=== PATIENT | female | born 1960 ===

== ENCOUNTER 2024-08-29 11:19 | Inpatient (IN) | payer OTHER ==
[~2024-08-29] VITALS: Ht 167.6 cm; Wt 121.2 kg
[2024-08-29] MEDS ORDERED: VALSARTAN320 MG PO (11:42)
[2024-08-29] MEDS ORDERED: LIPITOR80 MG PO (11:42)
[2024-08-29] MEDS ORDERED: SERT50 PO (11:42)
[2024-08-29] MEDS ORDERED: EPINEPHRIN0.3 MG/0.1 IM (11:42)
[2024-08-29] MEDS ORDERED: Dose Adjust by Pharmacy XX STA (12:41)
[2024-08-29] MEDS ORDERED: Heparin Sodium 5000 Units/ML 1ML MDV IV ONE (12:45)
[2024-08-29 12:57] LABS: International Normalized Ratio 1.02; Prothrombin Time Results 10.9 Sec (9.7-11.5)
[2024-08-29] MEDS ORDERED: Heparin Sodium,Porcine/0.5 NS 500 ML IV SCH (13:00)
[2024-08-29] MEDS ORDERED: FLU VACC TS2024-25(6MOS UP)/PF 45 MCG/0.5 ML SYRINGE IM ONE (15:10)
[2024-08-29 15:25] LABS: Cholesterol 138 mg/dL (50-200); HDL Cholesterol 46 mg/dL (>39); LDL/HDL RATIO 1.7; Low Density Lipoprotein Chol 77 mg/dL (0-110); Triglycerides 74 mg/dL (30-160); Very Low Density Lipoprot Chol 14 mg/dL (6-32)
[2024-08-29] MEDS ORDERED: Aspirin 81 MG Chew PO SCH (16:00)
[2024-08-29] MEDS ORDERED: EpiNEPhrine 1 MG/1 ML 1ML Vial IM PRN (16:20)
[2024-08-29 18:44] VITALS: BP 146/87
[2024-08-29] MEDS ORDERED: CYCL10 PO (18:52)
[2024-08-29] MEDS ORDERED: ACYC200 PO (18:52)
--- NOTE | 2024-08-29 18:54 | NUR ---
ARRIVAL TO PCU 16 PT A&OX4, CALLS AND COMMUNICATES NEEDS APPROPRIATELY. BP STABLE, SINUS 90's, DENIES CP/PRESSURE, REPORTS MILD L SHOULDER DISCOMFORT. SpO2> 92% RA, DENIES SOB. SBA IN ROOM. CONTINENT OF URINE, NO BM SINCE ARRIVAL. ORIENTED TO CALL LIGHT/UNIT. HEPARIN gtt INFUSING AT 15units/kg/hr. NO OTHER EVENTS, WILL REPORT TO ONCOMING RN.
[2024-08-29 20:10] VITALS: BP 143/94
--- NOTE | 2024-08-29 20:54 | NUR ---
PHYSICIAN COMMUNICATION CONTACTED CUPOLA MECHANIC RESIDENT TO NOTIFY HIM THAT THE PATIENT WAS REPORTING INCREASED CHEST PRESSURE, RATING IT 7/10 AND ABDOMINAL PAIN. PATIENT REPORTED RECEIVING NITRO EARLIER AND IT WAS NOT EFFECTIVE FOR PAIN. NOTIFIED PROVIDER THAT THE PATIENT DOES NOT HAVE ANYTHING ORDERED TO HELP WITH THE PAIN. RESIDENT TO INPUT ORDERS.
[2024-08-29] MEDS ORDERED: Morphine Sulfate 4 MG/1 ML Injection IV PRN (21:00)
[2024-08-29] MEDS ORDERED: Nitroglycerin 0.4 MG SUBL SL PRN (21:00)
[2024-08-30] VITALS (29 sets, daily range): BP systolic 93–157; BP diastolic 71–115
[2024-08-30 03:17] LABS: BASOPHILS ABSOLUTE AUTO 0.04 K/mm3 (0.00-0.23); BASOPHILS PERCENT AUTO 0 % (0-2); EOSINOPHILS ABSOLUTE AUTO 0.21 K/mm3 (0.00-0.68); EOSINOPHILS PERCENT AUTO 2 % (0-6); Hematocrit 36.4 % (33.0-51.0); Hemoglobin 11.5 g/dL (11.5-16.0); IMMATURE GRAN ABSOLUTE AUTO 0.02 K/mm3 (0.00-0.10); IMMATURE GRAN PERCENT AUTO 0 % (0-1); LYMPHOCYTES ABSOLUTE AUTO 2.62 K/mm3 (0.84-5.20); LYMPHOCYTES PERCENT AUTO 27 % (21-46); MONOCYTES ABSOLUTE AUTO 1.06 K/mm3 (0.16-1.47); MONOCYTES PERCENT AUTO 11 % (4-13); Mean Corpuscular HGB 29.6 pg (26.0-34.0); Mean Corpuscular HGB Conc 31.6 g/dL (31.5-36.5); Mean Corpuscular Volume 94 fL (80-100); Mean Platelet Volume 11.5 fL (9.1-12.4); NEUTROPHILS ABSOLUTE AUTO 5.68 K/mm3 (1.96-9.15); NEUTROPHILS PERCENT AUTO 59 % (41-73); Platelet Count 278 K/mm3 (150-400); RDW Coefficient Variation 13.2 % (11.7-14.2); RDW Standard Deviation 45.5 fL (35.1-46.3); Red Blood Cell Count 3.89 M/mm3 (3.80-5.20); White Blood Cell Count 9.63 K/mm3 (4.00-11.30)
[2024-08-30 03:35] LABS: Albumin, Blood 3.2 g/dL (3.4-5.0); Albumin/Globulin Ratio 0.8 (0.8-1.8); Bilirubin, Total 0.4 mg/dL (0.1-1.0); Bun/Creatinine Ratio 14.6 (12.0-20.0); Calcium, Blood 8.8 mg/dL (8.5-10.1); Creatinine, Blood 1.03 mg/dL (0.40-1.00); Potassium, Blood 4.4 mmol/L (3.5-5.5); Total Protein, Blood 7.2 g/dL (6.4-8.2)
[2024-08-30] MEDS ORDERED: Dose Adjust by Pharmacy XX STA (03:56)
--- NOTE | 2024-08-30 06:47 | NUR ---
SHIFT SUMMARY PATIENT ALERT AND ORIENTED X4. PATIENT CONTINUES TO EXPERIENCE CHEST PAIN AT REST AND IS REPORTING ANXIETY. MEDICATED PER EMAR FOR THE CHEST PAIN. ON ROOM AIR WITH SPO2 >90%. VITAL SIGNS STABLE. WILL CONTINUE TO MONITOR. CALL LIGHT WITHIN REACH.
[2024-08-30] MEDS ORDERED: FentaNYL Citrate 50 MCG/ML 2 ML Injection IV PRN (08:15)
[2024-08-30] MEDS ORDERED: Atorvastatin 40 MG Tab PO SCH (09:00)
[2024-08-30] MEDS ORDERED: Losartan Potassium 50 MG Tab PO SCH (09:00)
[2024-08-30] MEDS ORDERED: Sertraline HCl 50 MG Tab PO SCH (09:00)
[2024-08-30] MEDS ORDERED: Aspirin 81 MG Chew PO SCH (09:00)
[2024-08-30] MEDS ORDERED: FentaNYL Citrate 50 MCG/ML 2 ML Injection ONE ×6 (10:07→17:26)
[2024-08-30] MEDS ORDERED: Midazolam HCl 1MG / ML 2ML Vial ONE ×6 (10:07→17:26)
[2024-08-30] MEDS ORDERED: Ticagrelor 90 MG TABLET ONE (10:46)
--- NOTE | 2024-08-30 11:24 | NUR ---
MORNING SUMMARY THE PT IS A&OX4, SBA FOR LINE MANAGMENT ON TX, AND HAS BEEN ON RA THIS MORNING. THE PT HAS BEEN SR ON TELE AND BP IS STABLE. THE PT HAS BEEN HAVING ONGOING CHEST PAIN. DR. DIAZ, THE ORTHOTIST CONSULTED ON 08/29 WAS CALLED AND HE REFERED THIS RN TO DR. SOTO, THE ORTHOTIST ONCALL TODAY. HE DID ORDER FENTANYL TO HELP WITH ANGINA. DR. SOTO CAME TO SEE THE PT AND WAS CONSENTED FOR ANGIOGRAM.REPEAT EKG PER DR. ALEJO. PT WAS TAKEN FOR ANGIO AROUND 0945. SHE HAS BEEN ON RA W/ SP02 >93%, AND DENIES SOB. ECHO COMPLETED THIS MORNING. SEE NOTES FOR UPDATES.
--- NOTE | 2024-08-30 12:32 | NUR ---
PT BACK TO ROOM POST ANGIOGRAM. DR. LIZARRAGA CAME AND TALKED WITH THE PT. THE PT HAS RIGHT RADIAL ACCESS WITH A TR BAND INTACT W/ 11CC'S IN THE BAND. ACT >200, WAITING 2HRS TO DEFLATE THE BALLOON PER PROTOCOL. THE PT'S VITAL SIGNS ARE STABLE, BUT SHE IS HAVING SOB AND CHEST PAIN. DR. FISHER WANTED US TO TRY NITRO. NITRO DID NOT HAVE ANY BENEFIT TO CHEST PAIN AND CAUSED HEADACHE AND SOME NAUSEA. 25MCG OF FENTANYL GIVEN WITH POSITIVE EFFECTS TO ANGINA. PT PLACED ON 1L NC FOR COMFORT WITH SOB. THE PT IS VERY EMOTIONAL AND ANXIOUS. THIS RN CALLED DR. CALVERT FOR ANXIETY MEDICATIONS.
[2024-08-30] MEDS ORDERED: HyDROXyzine HCl 25 MG Tab PO ONE (13:00)
[2024-08-30] MEDS ORDERED: HyDROXyzine HCl 25 MG Tab PO PRN (13:00)
[2024-08-30] MEDS ORDERED: NS 1,000 ML IV ONE ×4 (13:24→16:55)
[2024-08-30] MEDS ORDERED: Verapamil HCL 2.5 MG/ML 2ML Injection ONE ×2 (13:24→16:45)
[2024-08-30] MEDS ORDERED: Nitroglycerin 2 MG/20 ML BTL ONE ×2 (13:24→16:45)
[2024-08-30] MEDS ORDERED: NS 250 ML IV ONE ×2 (13:24→16:45)
[2024-08-30] MEDS ORDERED: Heparin Sodium 1000 Units/ML 10ML MDV ONE ×4 (13:24→16:55)
[2024-08-30] MEDS ORDERED: Aspirin 325 MG Tab PO SCH ×2 (14:00→21:00)
[2024-08-30] MEDS ORDERED: Pantoprazole Sodium 40 MG Injection IV SCH (14:00)
[2024-08-30] MEDS ORDERED: Colchicine 0.6 MG TAB PO SCH (14:00)
[2024-08-30] MEDS ORDERED: DiphenhydrAMINE HCL 25 MG Cap PO ONE (14:00)
--- NOTE | 2024-08-30 14:00 | NUR ---
PT CONTINUES TO HAVE 10/10 CRUSHING MID STERNAL PAIN. WHEN SHE IS LAYING FLAT SHE STATES SHE FEELS LIKE SOMEONE HAS THEIR HAND AROUND HER THROAT AND IT IS CAUSING PRESSURE. DESPITE USING PRN'S PAIN UNCONTROLLED. DR. FISHER CALLED AND AN EKG WAS TAKEN. AT BEDSIDE HE COMPARED EKG'S AND ORDERED PROTONIX, COLCHINE, ASPIRIN, AND BENADRYL. SEE EMAR FOR DETAILS.
--- NOTE | 2024-08-30 16:40 | NUR ---
CONTINUED ANGINA/CHEST PRESSURE THE PT CONTINUES TO HAVE 10/10 CRUSHING, SHARP CHEST PAIN THAT IS NOW RADIATING TO HER SHOULDERS AND BACK OF THE NECK. DR. FISHER WAS CALLED AND UPDATED. HE ORDERED A REPEAT EKG AND WANTED TO BE NOTIFIED WHEN IT WAS COMPLETE. AFTER SEEING CRITICAL RESULTS ON THE EKG HE WAS CALLED AND CAME TO BEDSIDE. AFTER EVALUATING THE PT HE STATED HE IS GOING TO TAKE HER BACK TO THE BED LABORER. HER RIGHT RADIAL SITE IS FULLY RECOVERED AT 1600. SITE WITHOUT ANY BLEEDING OR HEMATOMA. CHG TO CLEAN AND TEGADERM AND ARMBOARD INTACT. WAITING FOR BED LABORER AT THIS TIME. DR. CALVERT AND HORTICULTURE/FLORICULTURE TEACHER UPDATED ON THE PT'S PLAN OF CARE. SEE NOTES FOR UPDATES .
--- NOTE | 2024-08-30 18:19 | NUR ---
PT BACK IN THE ROOM AFTER HER SECOND ANGIOGRAM. CRP SENT TO LAB. GI COCTAIL ORDERED. DR. FISHER AT BEDSIDE. CTA CHEST/ABD/PELVIS ORDERED STAT. RIGHT RADIAL ACCESS. TR BAND SITE WITH 12 CC'S IN THE BAG. PT'S CAP REFILL WAS >3 SEC. 1CC OF AIR REMOVED. SITE W/O BLEEDING OR HEMATOMA. PT VS STABLE. PT CONTINUES TO HAVE 10/10 CHEST CONSTANT CRUSHING CHEST PAIN. DR. SPARROW OKAY'D TO CONTINUE GIVING MORPHINE AND FENTANYL PER EMAR.
[2024-08-30] MEDS ORDERED: Mag Hydrox/Al Hydrox/Simeth 18 ML,Lidocaine 2% Viscous Soln 9 ML,Atropine/Scopalam/Hyos... PO ONE (18:20)
[2024-08-30] MEDS ORDERED: LORazepam 2 MG/ML 1ML Injection ONE (19:01)
[2024-08-30] MEDS ORDERED: LORazepam 2 MG/ML 1ML Injection IV STA (19:05)
--- NOTE | 2024-08-30 19:41 | NUR ---
PT TAKEN DOWN FOR STAT CTA. HER CHEST PAIN AND SOB WAS WORSE WHEN LAYING ON THE TABLE. D/T DISCOMFORTS AND CLAUSTERPHOBIA THE PT WAS MEDICATED WITH 1MG ATIVAN. CHARGE NURSE SUKUMAR STAY'D WITH THE PT. THE PT IS NOW BACK IN THE ROOM POST CTA. RESULTS PENDING. CARE HANDED OFF TO SHANKAR QUIROZ. NO FURTHER NOTES FROM THIS RN.
--- NOTE | 2024-08-30 19:52 | NUR ---
PATIENT RETURNED FROM CT REPORTING 04/06 MIDSTERNAL CRUSHING CHEST PAIN. PATIENT IS SHORT OF BREATH AN ANXIOUS. PATINENT HELPED INTO HER BED, VITALS TAKEN AND STABLE. PATIENT MEDICATED PER EMAR FOR CHEST PAIN BUT WAS FOUND SITTING UP ON THE SIDE OF THE BED, PATIENT STATED SHE WAS TRYING TO GET TO BED AND REMOVING MONITORING EQUIPMENT FROM HERSELF. PATIENT DISORIENTED TO DATE, ORIENTED TO ALL OTHER QUESTIONS BUT WAS UNAWARE THAT SHE WAS BACK IN HER HOSPITAL ROOM. PATIENT SPEAKING IN SENTENCES THAT DON'T MAKE SENSE. PATIENT ASSISTED BACK INTO BED. BED ALARM TURNED ON. CALL LIGHT WITHIN REACH. WILL CONTINUE TO MONITOR.
[2024-08-30] MEDS ORDERED: Clopidogrel Bisulfate 300 MG Cap PO ONE (21:00)
[2024-08-30] MEDS ORDERED: Pantoprazole Sodium 40 MG Tab PO SCH (22:00)
[2024-08-31] VITALS (20 sets, daily range): BP systolic 98–130; BP diastolic 62–94
[2024-08-31 06:16] LABS: BASOPHILS ABSOLUTE AUTO 0.03 K/mm3 (0.00-0.23); BASOPHILS PERCENT AUTO 0 % (0-2); EOSINOPHILS PERCENT AUTO 0 % (0-6); Hematocrit 34.8 % (33.0-51.0); Hemoglobin 10.8 g/dL (11.5-16.0); IMMATURE GRAN ABSOLUTE AUTO 0.08 K/mm3 (0.00-0.10); IMMATURE GRAN PERCENT AUTO 0 % (0-1); LYMPHOCYTES ABSOLUTE AUTO 0.77 K/mm3 (0.84-5.20); LYMPHOCYTES PERCENT AUTO 4 % (21-46); MONOCYTES ABSOLUTE AUTO 2.44 K/mm3 (0.16-1.47); MONOCYTES PERCENT AUTO 13 % (4-13); Mean Corpuscular Volume 94 fL (80-100); Mean Platelet Volume 11.7 fL (9.1-12.4); NEUTROPHILS ABSOLUTE AUTO 15.29 K/mm3 (1.96-9.15); NEUTROPHILS PERCENT AUTO 82 % (41-73); Platelet Count 276 K/mm3 (150-400); RDW Coefficient Variation 13.5 % (11.7-14.2); RDW Standard Deviation 46.3 fL (35.1-46.3); Red Blood Cell Count 3.72 M/mm3 (3.80-5.20); White Blood Cell Count 18.61 K/mm3 (4.00-11.30)
--- NOTE | 2024-08-31 06:23 | NUR ---
SHIFT SUMMARY PATIENT PATIENT CONTINUES TO HAVE SEVERE CHEST PAIN AND ANXIETY, MEDICATED PER EMAR. PATIENT HAD TO BE REASSURED AGAIN THAT SHE IS IN THE HOSPITAL, MOST RECENTLY SHE THOUGHT SHE WAS IN A BANK OR BASEMENT SOMEWHERE. PATIENT PLACED ON O2 VIA NC FOR COMFORT DUE TO FEELING SHORT OF BREATH, ALTHOUGH >90% ON ROOM AIR. VITAL SIGNS STABLE. WILL CONTINUE TO MONITOR. CALL LIGHT WITHIN REACH.
[2024-08-31 06:43] LABS: Albumin, Blood 3.2 g/dL (3.4-5.0); Albumin/Globulin Ratio 0.7 (0.8-1.8); Bilirubin, Total 0.4 mg/dL (0.1-1.0); Bun/Creatinine Ratio 13.9 (12.0-20.0); Creatinine, Blood 1.15 mg/dL (0.40-1.00); Globulin, Blood 4.4 g/dL (2.2-4.0); Potassium, Blood 4.7 mmol/L (3.5-5.5); Total Protein, Blood 7.6 g/dL (6.4-8.2)
[2024-08-31] MEDS ORDERED: Clopidogrel Bisulfate 300 MG Cap PO ONE (07:00)
[2024-08-31] MEDS ORDERED: LORazepam 1 MG Tab PO PRN (07:30)
[2024-08-31] MEDS ORDERED: Empagliflozin 10 MG TAB PO SCH (09:00)
[2024-08-31] MEDS ORDERED: prasugrel HCL 10 MG TABLET PO ONE (09:00)
[2024-08-31] MEDS ORDERED: Colchicine 0.6 MG TAB PO SCH (09:00)
[2024-08-31] MEDS ORDERED: Losartan Potassium 50 MG Tab PO SCH (09:00)
[2024-08-31] MEDS ORDERED: Lactated Ringer's 1,000 ML IV SCH (10:00)
[2024-08-31] MEDS ORDERED: Enoxaparin 40 MG/0.4 ML SYR SC SCH (13:30)
--- NOTE | 2024-08-31 17:00 | NUR ---
SHIFT SUMMARY PT A/OX4 AND COOPERATIVE OF CARE. PT ABLE T EXPRESS NEEDS AND CALLED APPROPIATE. PT ANXIOUS AT TIMES DURING SHIFT, TREATED PER EMAR. PT ENDORSED CHEST PAIN RELATED TO COUGHING AND DEEP BREATHS, TREATED PER EMAR. OTHER VSS THROUGHOUT SHIFT WITH O2 SATS IN THE 90'S ON RA-1L NC. PT ABLE TO AMBULATE TO BATHROOM FOR OILETING AND SHOWER, TOELRATED FAIR. PT ABLE TO REPOSITION SELF IN BED.
[2024-08-31] MEDS ORDERED: LORazepam 2 MG/ML 1ML Injection ONE (18:46)
[2024-08-31] MEDS ORDERED: LORazepam 2 MG/ML 1ML Injection IV ONE (18:50)
[2024-08-31] MEDS ORDERED: Ondansetron HCl 2 MG / ML 2ML Vial ONE (19:24)
[2024-08-31] MEDS ORDERED: Ondansetron HCl 2 MG / ML 2ML Vial IV PRN (19:35)
--- NOTE | 2024-08-31 19:38 | NUR ---
UPDATE [employer] NOTIFIED THIS RN THAT PT HR HAS BEEN REACHING 160'S, THIS RN TO ASSESS. PT TACHYPNIEC AND CLENCHING CHEST. PT REPORTED 10/10 CHEST PAIN. PT RECIEVED PO ATIVAN AND IV FENTYNAL PER ORDERS. PT CONTINUED TO RUN TACHY AND HAVE CHEST PAIN. THIS INSTRUCTED HOSPITAL ADMITTING CLERK TO GET EKG AND THIS RN CONTACTED MD FOR UPDATE. VITALS TAKEN AND STABLE OTHER THAN HR AND RR. MD NOTIFIED. EKG OBTAINED AND ST CHANGES NOTICED. THIS RN AGAIN CONTACTED MD OBI NOT AT HOSPITAL AT THIS TIME AND MD CONTACTED NIGHT TIME MD. TO BEDSIDE TO REVIEW EKG AND ASSESS PT. PT REPORTED CHEST RADIATING TO JAW, NECK BILAT ARMS AND BACK. PT REPORTED THAT PAIN IS "WORSE THAN WHEN I CAME IN." NIGHT MD INSTRUCTED THIS RN TO PUSH RECENT EKG TO PHOTORADIO OPERATOR, IMAGE PUSHED TO DR LIZARRAGA. DR LIZARRAGA TO BEDSIDE. REPORT GIVEN TO MD AND ONCOMING RN.
[2024-08-31] MEDS ORDERED: Heparin Sodium,Porcine/0.5 NS 500 ML IV SCH (20:10)
[2024-08-31] MEDS ORDERED: Heparin Sodium 5000 Units/ML 1ML MDV IV ONE (20:10)
[2024-08-31 20:36] LABS: Anti-Xa UFH, PHA Monitoring <0.10 IU/mL; International Normalized Ratio 1.12; Prothrombin Time Results 11.9 Sec (9.7-11.5)
[2024-08-31 20:56] LABS: Free Thyroxine 0.97 ng/dL (0.70-1.60); Magnesium, Blood 2.4 mg/dL (1.6-2.4)
[2024-08-31 21:03] LABS: Potassium, Blood 4.3 mmol/L (3.5-5.5); Thyroid Stimulating Hormone 3.15 uIU/mL (0.360-4.800)
[2024-09-01] VITALS (10 sets, daily range): BP systolic 10–143; BP diastolic 75–90
[2024-09-01 03:38] LABS: Hematocrit 32.8 % (33.0-51.0); Hemoglobin 10.4 g/dL (11.5-16.0); Mean Corpuscular HGB 29.9 pg (26.0-34.0); Mean Corpuscular HGB Conc 31.7 g/dL (31.5-36.5); Mean Corpuscular Volume 94 fL (80-100); Platelet Count 285 K/mm3 (150-400); RDW Coefficient Variation 13.8 % (11.7-14.2); RDW Standard Deviation 47.3 fL (35.1-46.3); Red Blood Cell Count 3.48 M/mm3 (3.80-5.20); White Blood Cell Count 25.46 K/mm3 (4.00-11.30)
[2024-09-01 03:57] LABS: BAND PERCENT MAN 8 % (0-8); BASOPHILS PERCENT MAN 0 % (0-2); EOSINOPHILS PERCENT MAN 0 % (0-6); LYMPHOCYTES ABSOLUTE MAN 1.27 K/mm3 (0.84-5.20); LYMPHOCYTES PERCENT MAN 5 % (21-46); MONOCYTES ABSOLUTE MAN 1.27 K/mm3 (0.16-1.47); MONOCYTES PERCENT MAN 5 % (4-13); NEUTROPHILS ABSOLUTE MAN 22.91 K/mm3 (1.96-9.15); SEG NEUTROPHILS PERCENT MAN 82 % (41-73); TOTAL CELLS COUNTED 100
[2024-09-01 04:06] LABS: Alanine Aminotransfer (ALT/SGP 22 U/L (12-78); Albumin, Blood 2.9 g/dL (3.4-5.0); Albumin/Globulin Ratio 0.6 (0.8-1.8); Alk Phos 122 U/L (50-136); Anion Gap 12 mmol/L (3-11); Aspartate Aminotrans (AST/SGOT 52 U/L (12-37); Bilirubin, Total 0.5 mg/dL (0.1-1.0); Blood Urea Nitrogen 25 mg/dL (8-24); Bun/Creatinine Ratio 14.2 (12.0-20.0); CO2, Blood 19 mmol/L (21-32); Calcium, Blood 8.3 mg/dL (8.5-10.1); Chloride, Blood 106 mmol/L (98-108); Creatinine, Blood 1.76 mg/dL (0.40-1.00); Globulin, Blood 4.5 g/dL (2.2-4.0); Glomerular Filtration Rate 32 (60-); Glucose, Blood 107 mg/dL (70-99); Potassium, Blood 4.8 mmol/L (3.5-5.5); Sodium, Blood 132 mmol/L (136-145); Total Protein, Blood 7.4 g/dL (6.4-8.2)
[2024-09-01 04:08] LABS: C-Reactive Protein, High Sens. >190.000 mg/dL (0.000-3.000)
[2024-09-01] MEDS ORDERED: Dose Adjust by Pharmacy XX STA ×2 (04:19→09:27)
--- NOTE | 2024-09-01 06:19 | NUR ---
SHIFT SUMMARY WHILE ZULMA VAUGHAN AND DR LIZARRAGA WERE AT BEDSIDE THE PATIENT WAS COMPLAINING OF 10/10 RADIATING CHEST PAIN AND NAUSEA. PATIENT MEDICATED PER EMAR. PROVIDERS ORDERED LABS AND A CHEST X RAY. PATIENT STARTED ON AN AMIODARONE AND HEPARIN DRIP. A CARDIZEM DRIP WAS ALSO ORDERED BUT DR LIZARRAGA SAID TO NOT START IT AND TO PLACE DEFIB PADS ON THE PATIENT AND ZOLL AT BEDSIDE. WHEN THE LABS RESULTED DR LIZARRAGA WAS NOTIFIED OF THEM AND THE FACT THAT HER HEART RATE WAS IN THE 120'S. A SECOND BOLUS OF AMIODARONE WAS ORDERED. ONCE THE PATIENT'S HEART RATE DROPPED DOWN TO THE 70'S AN EKG WAS OBTAINED PER DR LIZARRAGA ALONG WITH ONE AT 0500. BLOOD PRESSURE STABLE, ON ROOM AIR-1 LITER O2 VIA NC WITH SPO2 >90%. WILL CONTINUE TO MONITOR. CALL LIGHT WITHIN REACH.
[2024-09-01] MEDS ORDERED: Furosemide 20 MG Tab PO SCH (09:00)
[2024-09-01] MEDS ORDERED: prasugrel HCL 10 MG TABLET PO SCH (09:00)
[2024-09-01] MEDS ORDERED: Amiodarone HCl 200 MG Tab PO SCH (09:00)
[2024-09-01] MEDS ORDERED: Empagliflozin 10 MG TAB PO SCH (09:00)
[2024-09-01] MEDS ORDERED: Furosemide 10 MG/ML 4ML Vial IV SCH (09:00)
[2024-09-01] MEDS ORDERED: Losartan Potassium 50 MG Tab PO SCH (09:00)
[2024-09-01] MEDS ORDERED: Clopidogrel Bisulfate 75 MG Tab PO SCH (09:00)
[2024-09-01] MEDS ORDERED: PredniSONE 20 MG Tab PO SCH (09:30)
[2024-09-01] MEDS ORDERED: CefTRIAXone Sodium 1,000 MG in NS 100 ML IV SCH (12:01)
[2024-09-01] MEDS ORDERED: Acetaminophen 325 MG TABLET PO SCH (13:00)
--- NOTE | 2024-09-01 17:27 | NUR ---
SHIFT SUMMARY PT AOX4 AND COOPERATIVE OF CARE. PT ABLE TO EXPRESS NEEDS AND CALLS APPROPIATE. PT ENDORSED CHEST PAIN THAT IS CONSTANT, MD AWARE AND TREATING PER EMAR. VSS. HEPARIN STOPPED THIS SHIFT PER ORDER. AMIO SWITCHED TO PO PER ORDER. PT UP TO RECINER A COUPLE OF TIMES DRIN SHIFT, TOLERATED FAIR. GALLARDO PLACED PER ORDER. PT ABLE TO REST TOWARD END OF SHIFT, CHEST DISCOMFORT APEARED BETTER.
[2024-09-01] MEDS ORDERED: Lidocaine 4% 1 Patch TOP ONE (21:05)
[2024-09-01] MEDS ORDERED: Furosemide 10 MG/ML 4ML Vial IV STA (21:23)
[2024-09-02] VITALS (7 sets, daily range): BP systolic 95–134; BP diastolic 63–85
[2024-09-02] MEDS ORDERED: Benzonatate 100 MG Cap PO PRN (04:30)
[2024-09-02] MEDS ORDERED: Phenol/Sodium Phenolate Oral Spray 180 ML MM PRN (04:30)
[2024-09-02 04:58] LABS: BASOPHILS ABSOLUTE AUTO 0.03 K/mm3 (0.00-0.23); BASOPHILS PERCENT AUTO 0 % (0-2); EOSINOPHILS ABSOLUTE AUTO 0.17 K/mm3 (0.00-0.68); EOSINOPHILS PERCENT AUTO 1 % (0-6); Hemoglobin 10.8 g/dL (11.5-16.0); IMMATURE GRAN ABSOLUTE AUTO 0.06 K/mm3 (0.00-0.10); IMMATURE GRAN PERCENT AUTO 1 % (0-1); LYMPHOCYTES ABSOLUTE AUTO 1.28 K/mm3 (0.84-5.20); LYMPHOCYTES PERCENT AUTO 11 % (21-46); MONOCYTES ABSOLUTE AUTO 2.09 K/mm3 (0.16-1.47); MONOCYTES PERCENT AUTO 18 % (4-13); Mean Corpuscular HGB 29.2 pg (26.0-34.0); Mean Corpuscular HGB Conc 31.8 g/dL (31.5-36.5); Mean Corpuscular Volume 92 fL (80-100); Mean Platelet Volume 12.1 fL (9.1-12.4); NEUTROPHILS ABSOLUTE AUTO 8.27 K/mm3 (1.96-9.15); NEUTROPHILS PERCENT AUTO 69 % (41-73); Platelet Count 293 K/mm3 (150-400); RDW Standard Deviation 47.2 fL (35.1-46.3)
[2024-09-02 05:32] LABS: Albumin, Blood 2.9 g/dL (3.4-5.0); Albumin/Globulin Ratio 0.6 (0.8-1.8); Bilirubin, Total 0.4 mg/dL (0.1-1.0); Bun/Creatinine Ratio 16.7 (12.0-20.0); Calcium, Blood 8.5 mg/dL (8.5-10.1); Creatinine, Blood 2.21 mg/dL (0.40-1.00); Globulin, Blood 4.6 g/dL (2.2-4.0); Total Protein, Blood 7.5 g/dL (6.4-8.2)
[2024-09-02] MEDS ORDERED: Losartan Potassium 25 MG Tab PO SCH (06:00)
--- NOTE | 2024-09-02 06:27 | NUR ---
SHIFT SUMMARY ASSUMED CARE OF PT AT APPROX 1900. PT A&O4, LETHARGC, COOPERATIVE IN CARE AND ABLE TO EXPRESS NEEDS. PT DENIES SOB BUT DID C/O COUGH AND SORE THROAT. NOTIFIED MD, ORDERS GIVEN, PRNs ADMINISTERED. PT ALSO C/O LEFT SHOULDER PAIN W LITTLE TO NO RELIEF FROM CURRENT PRN ANALGESICS, NOTIFIED MD, ORDERS GIVEN ONE TIME ORDER ADMINISTERED. CARDIO MD CALLED FOR UPDATE ON PT, ORDERS GIVEN, AND MEDS ADMINISTERED. PT C/O ORTHOPNEA, FREQUENT REPOSITIONING DONE WHEN REQUESTED BY PT. GALLARDO CATH IN PLACE, CLEAN, PATENT, BELOW BLADDER AND OFF FLOOR. INTAKE AND OUTPUT DOCUMENTED. BED IN LOWEST POSITION AND CALL LIGHT WITHIN REACH.
[2024-09-02 16:22] LABS: Albumin, Blood 2.6 g/dL (3.4-5.0); Anion Gap 11 mmol/L (3-11); Blood Urea Nitrogen 42 mg/dL (8-24); Bun/Creatinine Ratio 19.8 (12.0-20.0); CO2, Blood 21 mmol/L (21-32); Calcium, Blood 8.1 mg/dL (8.5-10.1); Chloride, Blood 107 mmol/L (98-108); Creatinine, Blood 2.12 mg/dL (0.40-1.00); Glomerular Filtration Rate 26 (60-); Glucose, Blood 105 mg/dL (70-99); Phosphorus, Blood 3.7 mg/dL (2.5-4.9); Potassium, Blood 3.7 mmol/L (3.5-5.5); Sodium, Blood 135 mmol/L (136-145)
--- NOTE | 2024-09-02 18:45 | NUR ---
SHIFT SUMMARY PT A/OX4 AND ABLE TO EXPRESS NEEDS. PT NOT USIN CALL LIGHT APROPIATELY, BED ALARM IN PLACE. PT ABLE TO MBULATE TO TOILET MUTLIPLE TIMES VIA WALKER, TOLERATED FAIR. PT ENDORSED SOB WITH EXERTION. VSS THROUGHOUT SHIFT. PT CONTINUED TO ENDORSE CHEST PAIN BUT STATED THAT IT HAS "IMPROVED SLIGHTLY." PT ABLE TO SLEEP DURING SHIFT AND REPORTED BEING ABLE TO GET SOME SLEEP DURING MATERIALS TECHNICIAN. ECHO DONE, SEE CHART. PT SEEN BY FINAL TOUCH UP PAINTER AGAIN TODAY AND UPDATED ON PLAN OF CARE. EKG DONE AND IN CHART PER FINAL TOUCH UP PAINTER. PT REPORTED ABD DICOMFT AFTER DRINKING AND ENSURE, MULTIPLE BM'S AFTER, REPORTS SOME RELIEF.
[2024-09-03] VITALS (8 sets, daily range): BP systolic 92–129; BP diastolic 52–104
[2024-09-03 04:45] LABS: BASOPHILS ABSOLUTE AUTO 0.03 K/mm3 (0.00-0.23); BASOPHILS PERCENT AUTO 0 % (0-2); EOSINOPHILS PERCENT AUTO 3 % (0-6); Hematocrit 32.3 % (33.0-51.0); Hemoglobin 10.3 g/dL (11.5-16.0); IMMATURE GRAN ABSOLUTE AUTO 0.04 K/mm3 (0.00-0.10); IMMATURE GRAN PERCENT AUTO 0 % (0-1); LYMPHOCYTES ABSOLUTE AUTO 0.87 K/mm3 (0.84-5.20); LYMPHOCYTES PERCENT AUTO 8 % (21-46); MONOCYTES ABSOLUTE AUTO 1.83 K/mm3 (0.16-1.47); MONOCYTES PERCENT AUTO 17 % (4-13); Mean Corpuscular HGB 28.9 pg (26.0-34.0); Mean Corpuscular HGB Conc 31.9 g/dL (31.5-36.5); Mean Corpuscular Volume 91 fL (80-100); Mean Platelet Volume 11.6 fL (9.1-12.4); NEUTROPHILS ABSOLUTE AUTO 7.73 K/mm3 (1.96-9.15); NEUTROPHILS PERCENT AUTO 72 % (41-73); Platelet Count 303 K/mm3 (150-400); RDW Coefficient Variation 13.9 % (11.7-14.2); RDW Standard Deviation 46.6 fL (35.1-46.3); Red Blood Cell Count 3.56 M/mm3 (3.80-5.20)
--- NOTE | 2024-09-03 04:59 | NUR ---
SHIFT SUMMARY PT A&O X4, OBEYS COMMANDS, REPOSITIONING SELF IN BED, PT MOVING ALL EXTREMITIES EQUALLY, PT OBEYING COMMANDS, SBA TO BRP. CONTINUOUS TELE MONITORING, SINUS RYHTM 70 S, BP STABLE WITH MAP GREATER THAN 65, STRONG PULSES PRESENT T/O, CAP REFILL LESS THAN 3S, PT REPORTS CHEST P/P THAT IS SLIGHTLY IMPROVE . CONTINUOUS SPO2, SPO2 GREATER THAN 90% ON RA, PT HAVING FREQUENT NONPRODUCTIVE COUGH. BOWEL TONES PRESENT IN ALL 4Q, PT HAD LIQUID STOOL THIS SHIFT WITH AN INCONTINEMT EPISODE. GALLARDO CATH PATENT/SECURE/DRAINING TO GRAVITY, URINE YELLOW IN COLOR. BED LOWEST POSITION, CALL LIGHT IN REACH, AWAITING TO GIVE REPORT TO ONCOMING RN.
[2024-09-03 05:14] LABS: Albumin, Blood 2.6 g/dL (3.4-5.0); Anion Gap 10 mmol/L (3-11); Blood Urea Nitrogen 45 mg/dL (8-24); Bun/Creatinine Ratio 22.1 (12.0-20.0); CO2, Blood 21 mmol/L (21-32); Chloride, Blood 110 mmol/L (98-108); Creatinine, Blood 2.04 mg/dL (0.40-1.00); Glomerular Filtration Rate 27 (60-); Glucose, Blood 82 mg/dL (70-99); Magnesium, Blood 2.6 mg/dL (1.6-2.4); Phosphorus, Blood 3.5 mg/dL (2.5-4.9); Potassium, Blood 3.4 mmol/L (3.5-5.5); Sodium, Blood 138 mmol/L (136-145)
[2024-09-03] MEDS ORDERED: Potassium Chl 20MEQ/Water100ML 100 ML IV STA (07:06)
[2024-09-03] MEDS ORDERED: Ketorolac Tromethamine 15mg Vial IV PRN (09:35)
[2024-09-03] MEDS ORDERED: NS 250 ML IV PRN (10:20)
[2024-09-03] MEDS ORDERED: Carvedilol 3.125 MG Tab PO SCH (11:00)
[2024-09-03] MEDS ORDERED: FentaNYL Citrate 50 MCG/ML 2 ML Injection IV PRN (15:20)
[2024-09-03] MEDS ORDERED: OxyCODONE 5 mg/Acetamin 325 mg TABLET PO PRN (15:20)
--- NOTE | 2024-09-03 17:42 | NUR ---
SHIFT SUMMARY PT A&OX4. USES CALL LIGHT APPROPRIATELY. SP02>90% ON RA. TELEMETRY SHOWS NSR, HR 70'S. VSS. C/O OF CP/L ARM PAIN. INCREASES W/ COUGHING. MD SWENSON IN ROOM W/ ORDER FOR TORADOL, GIVEN X1 PER EMAR W/ SIGNIFICANT RELIEF OF CP PER PT. GALLARDO CATHETER DRAINING YELLOW URINE TO GRAVITY. PT UP TO BATHROOM THIS AFTERNOON W/ LOOSE BM X2. C/O OF STOMACH IRRITIBILITY. LOW APPETITE, ENSURES ENCOURAGED. POSTASSIUM REPLACED PER EMAR. ABX INFUSED PER EMAR. ECHO IN ROOM THIS AM, SEE RESULTS. PT CURRENTLY SITTING ON SIDE OF BED. CALL LIGHT IN REACH.
[2024-09-03] MEDS ORDERED: Amiodarone HCl 200 MG Tab PO SCH (21:00)
--- NOTE | 2024-09-03 23:01 | NUR ---
ASSUMPTION OF CARE THIS RN ASSUMED CARE OF PATIENT AT 1900. PT A&O X4. ABLE TO MAKE NEEDS KNOWN. REPORTING CHEST/L ARM PAIN, STATES UNCHANGED FROM ALL PREVIOUS PAIN; MEDICATED PER EMAR. SR ON MONITOR WITH HR 70-80'S. BP STABLE. ON RA WITH SPO2 >92%. REPOSITIONING SELF IN BED INDEPENDENTLY. GALLARDO CATHETER PATENT AND DRAINING TO GRAVITY. MEDICATED PER EMAR FOR ANXIETY AND FOR COUGHING. PT STATES COUGHING IS INCREASING PAIN AND REPORTS 8/10 PAIN WITH COUGHING FITS. BED IN LOWEST POSITION ANS CALL LIGHT WITHIN REACH.
[2024-09-04 03:47] VITALS: BP 115/70
--- NOTE | 2024-09-04 04:30 | NUR ---
SHIFT SUMMARY SEE PREVIOUS NOTE NO ACUTE CHANGES OVERNIGHT. NO CHANGES TO CHEST/ARM PAIN. PT MOSTLY COMPLAINING OF COUGHING DURING THIS SHIFT. HARSH NONPRODUCTIVE COUGH NOTED. PT MEDICATED X2 FOR COUGH. PT CONTINUES TO REPORT THAT CHEST PAIN IS WORSE WITH COUGHING. NEURO INTACT. CALLING APPROPRIATELY. VSS. ST ELEVATION ON TELE REMAINS UNCHANGED. CONTINUES TO BE IN NSR. PT ABLE TO REPOSITION SELF IN BED INDEPENDENTLY. GALLARDO CATHETER IN PLACE FOR ACCURATE I'S/O'S PER MD; PATENT AND DRAINING TO GRAVITY. BED IN LOWEST POSITION AND CALL LIGHT WITHIN REACH. PT ASKED THAT IF SHE IS SLEEPING AT SHIFT CHANGE, THAT RN'S NOT DO BEDSIDE SHIFT REPORT. THIS RN WILL REPORT TO ONCOMING DAYSHIFT RN.
[2024-09-04 04:56] LABS: BASOPHILS ABSOLUTE AUTO 0.02 K/mm3 (0.00-0.23); BASOPHILS PERCENT AUTO 0 % (0-2); EOSINOPHILS ABSOLUTE AUTO 0.36 K/mm3 (0.00-0.68); EOSINOPHILS PERCENT AUTO 4 % (0-6); Hematocrit 30.2 % (33.0-51.0); Hemoglobin 9.5 g/dL (11.5-16.0); IMMATURE GRAN ABSOLUTE AUTO 0.05 K/mm3 (0.00-0.10); IMMATURE GRAN PERCENT AUTO 1 % (0-1); LYMPHOCYTES ABSOLUTE AUTO 1.04 K/mm3 (0.84-5.20); LYMPHOCYTES PERCENT AUTO 11 % (21-46); MONOCYTES ABSOLUTE AUTO 1.67 K/mm3 (0.16-1.47); MONOCYTES PERCENT AUTO 18 % (4-13); Mean Corpuscular HGB Conc 31.5 g/dL (31.5-36.5); Mean Corpuscular Volume 92 fL (80-100); Mean Platelet Volume 11.5 fL (9.1-12.4); NEUTROPHILS ABSOLUTE AUTO 6.13 K/mm3 (1.96-9.15); NEUTROPHILS PERCENT AUTO 66 % (41-73); Platelet Count 330 K/mm3 (150-400); RDW Coefficient Variation 14.3 % (11.7-14.2); RDW Standard Deviation 48.2 fL (35.1-46.3); Red Blood Cell Count 3.28 M/mm3 (3.80-5.20); White Blood Cell Count 9.27 K/mm3 (4.00-11.30)
[2024-09-04 05:21] LABS: Albumin, Blood 2.4 g/dL (3.4-5.0); Anion Gap 11 mmol/L (3-11); Blood Urea Nitrogen 43 mg/dL (8-24); Bun/Creatinine Ratio 26.2 (12.0-20.0); CO2, Blood 21 mmol/L (21-32); Calcium, Blood 8.3 mg/dL (8.5-10.1); Chloride, Blood 109 mmol/L (98-108); Creatinine, Blood 1.64 mg/dL (0.40-1.00); Glomerular Filtration Rate 35 (60-); Glucose, Blood 97 mg/dL (70-99); Magnesium, Blood 2.5 mg/dL (1.6-2.4); Phosphorus, Blood 3.4 mg/dL (2.5-4.9); Potassium, Blood 3.8 mmol/L (3.5-5.5); Sodium, Blood 137 mmol/L (136-145)
[2024-09-04] MEDS ORDERED: Aspirin 81 MG TabEC PO SCH ×2 (09:00)
[2024-09-04] MEDS ORDERED: GuaiFENesin 100 MG/5 ML 5ML UDC PO PRN (09:45)
[2024-09-04 12:06] LABS: IMMATURE RETIC FRACTION 12.9 % (2.3-16.0); RETIC HGB EQUIVALENT 26.7 pg (28.20-36.60); RETICULOCYTE ABSOLUTE 0.0693 M/mm3 (0.0200-0.1100); RETICULOCYTE COUNT PERCENT 2.07 % (0.50-2.50)
[2024-09-04 12:19] LABS: Percent Saturation 6.3 % (15.0-50.0)
[2024-09-04 16:00] VITALS: BP 117/73
[2024-09-04] MEDS ORDERED: Sertraline HCl 50 MG Tab PO ONE (18:00)
[2024-09-04 19:26] VITALS: BP 96/59
[2024-09-05 00:12] VITALS: BP 124/73
[2024-09-05 04:26] VITALS: BP 120/73
[2024-09-05 04:36] LABS: BASOPHILS ABSOLUTE AUTO 0.02 K/mm3 (0.00-0.23); BASOPHILS PERCENT AUTO 0 % (0-2); EOSINOPHILS ABSOLUTE AUTO 0.37 K/mm3 (0.00-0.68); EOSINOPHILS PERCENT AUTO 5 % (0-6); Hematocrit 29.9 % (33.0-51.0); Hemoglobin 9.5 g/dL (11.5-16.0); IMMATURE GRAN ABSOLUTE AUTO 0.03 K/mm3 (0.00-0.10); IMMATURE GRAN PERCENT AUTO 0 % (0-1); LYMPHOCYTES ABSOLUTE AUTO 0.71 K/mm3 (0.84-5.20); LYMPHOCYTES PERCENT AUTO 9 % (21-46); MONOCYTES PERCENT AUTO 20 % (4-13); Mean Corpuscular HGB Conc 31.8 g/dL (31.5-36.5); Mean Corpuscular Volume 91 fL (80-100); Mean Platelet Volume 11.3 fL (9.1-12.4); NEUTROPHILS ABSOLUTE AUTO 5.36 K/mm3 (1.96-9.15); NEUTROPHILS PERCENT AUTO 66 % (41-73); Platelet Count 313 K/mm3 (150-400); RDW Coefficient Variation 13.9 % (11.7-14.2); RDW Standard Deviation 47.2 fL (35.1-46.3); Red Blood Cell Count 3.28 M/mm3 (3.80-5.20); White Blood Cell Count 8.09 K/mm3 (4.00-11.30)
[2024-09-05 04:56] LABS: Bun/Creatinine Ratio 23.8 (12.0-20.0); Calcium, Blood 8.2 mg/dL (8.5-10.1); Creatinine, Blood 1.3 mg/dL (0.40-1.00)
--- NOTE | 2024-09-05 05:11 | NUR ---
SHIFT SUMMARY PATIENT ALERT, ORIENTED x4, ABLE TO MAKE NEEDS KNOWN TO STAFF. BP STABLE, SOFT AT START OF SHIFT. ON TELE, HR 70-80s. DENIED CHEST PAIN DURING THE NIGHT. REMAINED ON RA WITH SPO2 >90%. PATIENT AMBULATING INTO BATHROOM MINIMAL ASSIST, USING WALKER. ADEQUATE OUTPUT. MEDICATED PER EMAR FOR PAIN AND HEADACHE. NO OTHER CHANGES, WILL REPORT TO DAY SHIFT RN.
[2024-09-05 08:00] VITALS: BP 145/94
[2024-09-05] MEDS ORDERED: Sertraline HCl 50 MG Tab PO SCH (09:00)
[2024-09-05] MEDS ORDERED: Pantoprazole Sodium 40 MG Tab PO SCH (09:00)
[2024-09-05 12:00] VITALS: BP 110/81
[2024-09-05] MEDS ORDERED: Losartan Potassium 25 MG Tab PO SCH (14:00)
[2024-09-05] MEDS ORDERED: Empagliflozin 10 MG TAB PO SCH (14:00)
[2024-09-05] MEDS ORDERED: Sod Ferric Gluc Complx/Sucrose 125 MG in NS 100 ML IV SCH (14:00)
[2024-09-05 16:00] VITALS: BP 145/90
[2024-09-05] MEDS ORDERED: Ondansetron 4 MG SoluTab MM PRN (18:10)
[2024-09-05 20:00] VITALS: BP 148/80
--- NOTE | 2024-09-05 23:01 | NUR ---
ASSUMPTION OF CARE: PATIENT EXTREMELY ANXIOUS AT TIMES, EDCUATION PROVIDED ABOUT CURRENT ILLNESS, CARDIAC RELATED CHEST PAIN, PROCEDURES, AND EXPECTED DISCHARGE. PATIENT FELT LESS ANXIOUS WITH EDUCATION, THAN ABOUT AN HOUR LATER, STARTED ENDORSING INCREASED SENSATION OF PAIN, NECK, SHOULDER, CHEST. TREATED WITH PRN ORAL PAIN MEDICATION, IMPROVED SIGNIFICANTLY. NO OTHER ACUTE CONCERNS, IV ROTATED. PLAN OF CARE CONTNIUES
[2024-09-06 01:00] VITALS: BP 2/85
[2024-09-06 03:43] VITALS: BP 131/78
[2024-09-06 04:38] LABS: BASOPHILS ABSOLUTE AUTO 0.02 K/mm3 (0.00-0.23); BASOPHILS PERCENT AUTO 0 % (0-2); EOSINOPHILS ABSOLUTE AUTO 0.24 K/mm3 (0.00-0.68); EOSINOPHILS PERCENT AUTO 3 % (0-6); Hematocrit 29.9 % (33.0-51.0); Hemoglobin 9.7 g/dL (11.5-16.0); IMMATURE GRAN ABSOLUTE AUTO 0.03 K/mm3 (0.00-0.10); IMMATURE GRAN PERCENT AUTO 0 % (0-1); LYMPHOCYTES ABSOLUTE AUTO 0.92 K/mm3 (0.84-5.20); LYMPHOCYTES PERCENT AUTO 12 % (21-46); MONOCYTES ABSOLUTE AUTO 2.13 K/mm3 (0.16-1.47); MONOCYTES PERCENT AUTO 27 % (4-13); Mean Corpuscular HGB 29.5 pg (26.0-34.0); Mean Corpuscular HGB Conc 32.4 g/dL (31.5-36.5); Mean Corpuscular Volume 91 fL (80-100); Mean Platelet Volume 11.5 fL (9.1-12.4); NEUTROPHILS ABSOLUTE AUTO 4.67 K/mm3 (1.96-9.15); NEUTROPHILS PERCENT AUTO 58 % (41-73); Platelet Count 305 K/mm3 (150-400); RDW Standard Deviation 46.4 fL (35.1-46.3); Red Blood Cell Count 3.29 M/mm3 (3.80-5.20); White Blood Cell Count 8.01 K/mm3 (4.00-11.30)
[2024-09-06 04:56] LABS: Bun/Creatinine Ratio 23.7 (12.0-20.0); Calcium, Blood 8.5 mg/dL (8.5-10.1); Creatinine, Blood 0.93 mg/dL (0.40-1.00); Potassium, Blood 3.9 mmol/L (3.5-5.5)
--- NOTE | 2024-09-06 06:05 | NUR ---
EOS: NO ACUTE CHANGES FROM START OF SHIFT, DID REQUIRE AN ADDITIONAL DOSE OF PAIN AND COUGH MEDICATION, TOLERATING EXERTION MORE. STILL AGREEABLE TO DISCHARGE, MAY NEED SOME FORM OF RIDE FOR DISCHARGE. SOME INTERMITENT CHEST PAIN MORE RELATED TO PLEURITIC PAIN ASSOCIATED WITH COUGHING. NO TELE CHANGES. VSS ON AM TERRY. AFEBRILE.
[2024-09-06] MEDS ORDERED: Polyethylene Glycol 3350 17 gm PO ONE (07:25)
[2024-09-06 08:53] VITALS: BP 152/91
[2024-09-06] MEDS ORDERED: Aspirin 325 MG Tab PO SCH (09:00)
[2024-09-06] MEDS ORDERED: Spironolactone 12.5 MG TAB PO SCH (09:00)
[2024-09-06] MEDS ORDERED: Amiodarone HCl 200 MG Tab PO SCH (09:00)
[2024-09-06] MEDS ORDERED: Losartan Potassium 25 MG Tab PO SCH (09:00)
[2024-09-06] MEDS ORDERED: LOSA25 PO (12:21)
[2024-09-06] MEDS ORDERED: ACET325 PO (12:22)
[2024-09-06] MEDS ORDERED: Amiodarone HCl200 MG PO (12:22)
[2024-09-06] MEDS ORDERED: Aspirin325 MG PO (12:23)
[2024-09-06] MEDS ORDERED: BENZ100A PO (12:26)
[2024-09-06] MEDS ORDERED: CLOP75 PO (12:26)
[2024-09-06] MEDS ORDERED: Q-Tussin100 MG/5 M PO (12:27)
[2024-09-06] MEDS ORDERED: JARDIANCE10 MG PO (12:27)
[2024-09-06] MEDS ORDERED: COLCHICINE0.6 MG PO (12:27)
[2024-09-06] MEDS ORDERED: HYDHCL25 PO (12:28)
[2024-09-06] MEDS ORDERED: PANT40 PO (12:29)
[2024-09-06] MEDS ORDERED: ALDACTONE25 MG PO (12:29)
--- NOTE | 2024-09-06 15:30 | NUR ---
DISCHARGE: PT HAS BEEN CLEARED FOR DISCHARGE HOME. ALL IV ACCESS HAS BEEN DC'd WNL. PT SHOWERS INDEPENDENTLY THEN DRESSES SELF. PRESCRIPTIONS SENT TO [facility] THEN VERIFIED VIA PHONE CALL THAT THEY WOULD BE READY FOR REGIONAL ENGINEER WHEN PT GOT THERE. DC PAPERWORK AND INSTRUCTIONS PROVIDED, REVIEWED W/PT, ALL QUESTIONS HAVE BEEN ANSWERED. PT ESCORTED FROM UNIT VIA W/C W/OUT INCIDENT.
[2024-09-06] MEDS ORDERED: Cyclobenzaprine HCl 10 MG Tab PO SCH (21:00)
[2024-09-07] MEDS ORDERED: Acyclovir 200 MG Cap PO SCH (09:00)
== END 2024-09-06 17:49 | disposition home or self-care (01) | DRG 323 ==
LOC: ER 11:19 → PCU 16:20 → ERHOLD 16:20 → PCU 18:40
PROVIDERS: Family Medicine; Internal Medicine; Internal Medicine Interventional Cardiology; Nurse Practitioner Acute Care; Student in an Organized Health Care Education/Training Program; ADMIT Hospitalist
PROC: 027034Z Dilation of Coronary Artery, One Artery with Drug-eluting Intraluminal Device, Percutaneous Approach (ICD-10-PCS; principal; 2024-08-30)
PROC: 02F03ZZ Fragmentation in Coronary Artery, One Artery, Percutaneous Approach (ICD-10-PCS; 2024-08-30)
PROC: B240ZZ3 Ultrasonography of Single Coronary Artery, Intravascular (ICD-10-PCS; 2024-08-30)
PROC: 4A023N7 Measurement of Cardiac Sampling and Pressure, Left Heart, Percutaneous Approach (ICD-10-PCS; 2024-08-30)
PROC: B2111ZZ Fluoroscopy of Multiple Coronary Arteries using Low Osmolar Contrast (ICD-10-PCS; 2024-08-30)
DX: I21.4 Non-ST elevation (NSTEMI) myocardial infarction (principal); I50.21 Acute systolic (congestive) heart failure; J18.9 Pneumonia, unspecified organism; I13.0 Hypertensive heart and chronic kidney disease with heart failure and stage 1 through stage 4 chronic kidney disease, or unspecified chronic kidney disease; K92.1 Melena; Z68.41 Body mass index [BMI] 40.0-44.9, adult; N17.9 Acute kidney failure, unspecified; I30.9 Acute pericarditis, unspecified; I24.9 Acute ischemic heart disease, unspecified; E78.5 Hyperlipidemia, unspecified; F32.A Depression, unspecified; F41.1 Generalized anxiety disorder; N18.31 Chronic kidney disease, stage 3a; I25.10 Atherosclerotic heart disease of native coronary artery without angina pectoris; E66.01 Morbid (severe) obesity due to excess calories; E87.6 Hypokalemia; R73.03 Prediabetes; I48.0 Paroxysmal atrial fibrillation; D50.9 Iron deficiency anemia, unspecified; D63.1 Anemia in chronic kidney disease; Z98.890 Other specified postprocedural states; Z88.8 Allergy status to other drugs, medicaments and biological substances; Z82.49 Family history of ischemic heart disease and other diseases of the circulatory system; Z79.899 Other long term (current) drug therapy; Z28.21 Immunization not carried out because of patient refusal
CPT/HCPCS: 36415; 51702; 71045; 71275; 74174; 76937; 80048; 80053; 80061; 80069; 82728; 83036; 83540; 83550; 83735; 83880; 84132; 84145; 84439; 84443; 84484; 85025; 85045; 85347; 85520; 85610; 85651; 85730; 86140; 86141; 87040; 92978; 93005; 93010; 93308; 93321; 93454; 93458; 93567; 94760; 94762; 96365; 97110; 97112-CQ; 97161; 99152; 99153; 99285-25; A9270; C1725; C1753; C1761; C1769; C1874; C1887; C1894; C8929; C9600; J0282; J0696; J1644; J1885; J1940; J2060; J2250; J2270; J2405; J2470; J2916; J3010; J3480; J7030; J7050; J7060; J7120; Q9957; Q9967

== ENCOUNTER → 2024-08-29 | Outpatient (CLI) | payer OTHER ==
[~2024-08-29] MED LIST: ACET325 PO; ACYC200 PO; ALDACTONE25 MG PO; Amiodarone HCl200 MG PO; Aspirin325 MG PO; BENZ100A PO; CLOP75 PO; COLCHICINE0.6 MG PO; CYCL10 PO; EPINEPHRIN0.3 MG/0.1 IM; HYDHCL25 PO; JARDIANCE10 MG PO; LIPITOR80 MG PO; LOSA25 PO; PANT40 PO; Q-Tussin100 MG/5 M PO; SERT50 PO; VALSARTAN320 MG PO
[2024-08-29 10:29] LABS: BASOPHILS ABSOLUTE AUTO 0.03 K/mm3 (0.00-0.23); BASOPHILS PERCENT AUTO 0 % (0-2); EOSINOPHILS ABSOLUTE AUTO 0.09 K/mm3 (0.00-0.68); EOSINOPHILS PERCENT AUTO 1 % (0-6); Hematocrit 37.1 % (33.0-51.0); Hemoglobin 11.8 g/dL (11.5-16.0); IMMATURE GRAN ABSOLUTE AUTO 0.03 K/mm3 (0.00-0.10); IMMATURE GRAN PERCENT AUTO 0 % (0-1); LYMPHOCYTES ABSOLUTE AUTO 1.66 K/mm3 (0.84-5.20); LYMPHOCYTES PERCENT AUTO 13 % (21-46); MONOCYTES ABSOLUTE AUTO 1.03 K/mm3 (0.16-1.47); MONOCYTES PERCENT AUTO 8 % (4-13); Mean Corpuscular HGB 28.7 pg (26.0-34.0); Mean Corpuscular HGB Conc 31.8 g/dL (31.5-36.5); Mean Corpuscular Volume 90 fL (80-100); Mean Platelet Volume 11.7 fL (9.1-12.4); NEUTROPHILS ABSOLUTE AUTO 9.72 K/mm3 (1.96-9.15); NEUTROPHILS PERCENT AUTO 78 % (41-73); Platelet Count 329 K/mm3 (150-400); RDW Coefficient Variation 13.1 % (11.7-14.2); RDW Standard Deviation 43.1 fL (35.1-46.3); Red Blood Cell Count 4.11 M/mm3 (3.80-5.20); White Blood Cell Count 12.56 K/mm3 (4.00-11.30)
[2024-08-29 10:41] LABS: Albumin, Blood 3.4 g/dL (3.4-5.0); Albumin/Globulin Ratio 0.8 (0.8-1.8); Bilirubin, Total 0.3 mg/dL (0.1-1.0); Bun/Creatinine Ratio 13.9 (12.0-20.0); Calcium, Blood 9.4 mg/dL (8.5-10.1); Creatinine, Blood 1.22 mg/dL (0.40-1.00); Globulin, Blood 4.2 g/dL (2.2-4.0); Potassium, Blood 4.7 mmol/L (3.5-5.5); Total Protein, Blood 7.6 g/dL (6.4-8.2)
== END | disposition home or self-care (01) ==
LOC: LAB 10:24 → LAB SHORT 10:24
PROVIDERS: Emergency Medicine
DX: R07.9 Chest pain, unspecified (principal)
CPT/HCPCS: 80053; 83880; 84484; 85025

== ENCOUNTER → 2024-10-07 | Outpatient (CLI) | payer OTHER ==
[~2024-10-07] MED LIST changes: +ASPI81CH PO; +FURO40 PO; +TRAM50 PO
[2024-10-08 12:47] LABS: C DIFFICILE DNA NEGATIVE (Negative)
== END ==
LOC: LAB SHORT 15:57 → LAB 15:57
PROVIDERS: Family Medicine
DX: R19.7 Diarrhea, unspecified (principal)
CPT/HCPCS: 87493; 89055

== ENCOUNTER 2024-12-07 15:13 | Emergency (ER) | payer OTHER ==
[~2024-12-07] VITALS: Ht 170.2 cm; Wt 100.2 kg
[2024-12-07 16:06] LABS: BASOPHILS ABSOLUTE AUTO 0.05 K/mm3 (0.00-0.23); BASOPHILS PERCENT AUTO 1 % (0-2); EOSINOPHILS ABSOLUTE AUTO 0.16 K/mm3 (0.00-0.68); EOSINOPHILS PERCENT AUTO 2 % (0-6); Hematocrit 37.5 % (33.0-51.0); Hemoglobin 11.8 g/dL (11.5-16.0); IMMATURE GRAN ABSOLUTE AUTO 0.01 K/mm3 (0.00-0.10); IMMATURE GRAN PERCENT AUTO 0 % (0-1); LYMPHOCYTES ABSOLUTE AUTO 2.38 K/mm3 (0.84-5.20); LYMPHOCYTES PERCENT AUTO 35 % (21-46); MONOCYTES ABSOLUTE AUTO 0.71 K/mm3 (0.16-1.47); MONOCYTES PERCENT AUTO 10 % (4-13); Mean Corpuscular HGB 28.9 pg (26.0-34.0); Mean Corpuscular HGB Conc 31.5 g/dL (31.5-36.5); Mean Corpuscular Volume 92 fL (80-100); Mean Platelet Volume 12.3 fL (9.1-12.4); NEUTROPHILS ABSOLUTE AUTO 3.54 K/mm3 (1.96-9.15); NEUTROPHILS PERCENT AUTO 52 % (41-73); Platelet Count 283 K/mm3 (150-400); RDW Coefficient Variation 16.2 % (11.7-14.2); RDW Standard Deviation 55.1 fL (35.1-46.3); Red Blood Cell Count 4.09 M/mm3 (3.80-5.20); White Blood Cell Count 6.85 K/mm3 (4.00-11.30)
[2024-12-07 16:13] LABS: Albumin, Blood 3.3 g/dL (3.4-5.0); Albumin/Globulin Ratio 0.9 (0.8-1.8); Bilirubin, Total 0.5 mg/dL (0.1-1.0); Bun/Creatinine Ratio 10.3 (12.0-20.0); Calcium, Blood 9.5 mg/dL (8.5-10.1); Creatinine, Blood 1.36 mg/dL (0.40-1.00); Globulin, Blood 3.6 g/dL (2.2-4.0); Potassium, Blood 4.9 mmol/L (3.5-5.5); Total Protein, Blood 6.9 g/dL (6.4-8.2)
[2024-12-07] MEDS ORDERED: Acetaminophen 500 MG Tab PO ONE (16:30)
== END 2024-12-07 17:56 | disposition home or self-care (01) ==
LOC: ER 15:13
PROVIDERS: Emergency Medicine
DX: S60.222A Contusion of left hand, initial encounter (principal); S00.511A Abrasion of lip, initial encounter; S00.81XA Abrasion of other part of head, initial encounter; S60.511A Abrasion of right hand, initial encounter; I11.0 Hypertensive heart disease with heart failure; I50.20 Unspecified systolic (congestive) heart failure; I48.91 Unspecified atrial fibrillation; I25.10 Atherosclerotic heart disease of native coronary artery without angina pectoris; I25.2 Old myocardial infarction; E78.5 Hyperlipidemia, unspecified; Z88.2 Allergy status to sulfonamides; Z88.8 Allergy status to other drugs, medicaments and biological substances; Z79.01 Long term (current) use of anticoagulants; Z79.84 Long term (current) use of oral hypoglycemic drugs; Z79.82 Long term (current) use of aspirin; Z79.899 Other long term (current) drug therapy; W18.39XA Other fall on same level, initial encounter
CPT/HCPCS: 70450; 73000; 73120; 80053; 84484; 85025; 93005; 93010; 99285-25; A9270

== ENCOUNTER 2025-03-31 16:51 | Observation (INO) | payer OTHER ==
[~2025-03-31] VITALS: Ht 170.2 cm; Wt 101.8 kg
[2025-03-31 17:17] LABS: BASOPHILS ABSOLUTE AUTO 0.05 K/mm3 (0.00-0.23); BASOPHILS PERCENT AUTO 1 % (0-2); EOSINOPHILS ABSOLUTE AUTO 0.10 K/mm3 (0.00-0.68); EOSINOPHILS PERCENT AUTO 1 % (0-6); Hematocrit 33.9 % (33.0-51.0); Hemoglobin 11.6 g/dL (11.5-16.0); IMMATURE GRAN ABSOLUTE AUTO 0.04 K/mm3 (0.00-0.10); IMMATURE GRAN PERCENT AUTO 0 % (0-1); LYMPHOCYTES ABSOLUTE AUTO 2.38 K/mm3 (0.84-5.20); LYMPHOCYTES PERCENT AUTO 23 % (21-46); MONOCYTES ABSOLUTE AUTO 0.94 K/mm3 (0.16-1.47); MONOCYTES PERCENT AUTO 9 % (4-13); Mean Corpuscular HGB Conc 34.2 g/dL (31.5-36.5); Mean Corpuscular Volume 93 fL (80-100); NEUTROPHILS ABSOLUTE AUTO 7.02 K/mm3 (1.96-9.15); NEUTROPHILS PERCENT AUTO 67 % (41-73); NRBC ABSOLUTE 0.00 K/mm3 (0.00-0.02); NRBC Auto 0.0 /100 WBC (0.0-0.2); Platelet Count 357 K/mm3 (150-400); RDW Coefficient Variation 12.5 % (11.7-14.2); RDW Standard Deviation 43.3 fL (35.1-46.3)
[2025-03-31 17:35] LABS: Alanine Aminotransfer (ALT/SGP 21.0 U/L (12-78); Albumin, Blood 3.9 g/dL (3.4-5.0); Albumin/Globulin Ratio 1.0 (0.8-1.8); Anion Gap 12.0 mmol/L (3-11); Aspartate Aminotrans (AST/SGOT 25.0 U/L (12-37); Bilirubin, Total 0.4 mg/dL (0.1-1.0); Blood Urea Nitrogen 27.0 mg/dL (8-24); CO2, Blood 23.0 mmol/L (21-32); Calcium, Blood 9.4 mg/dL (8.5-10.1); Chloride, Blood 97.0 mmol/L (98-108); Creatinine, Blood 1.8 mg/dL (0.40-1.00); Globulin, Blood 4.0 g/dL (2.2-4.0); Glucose, Blood 113.0 mg/dL (70-99); Potassium, Blood 3.5 mmol/L (3.5-5.5); Sodium, Blood 128.0 mmol/L (136-145); Total Protein, Blood 7.9 g/dL (6.4-8.2)
[2025-03-31 20:03] LABS: Bilirubin, Urine Neg (Neg); Color, Urine Yellow (P-Yellow); Glucose Qualitative, Urine 1+ (Neg); Ketones, Urine Neg (Neg); Leukocyte Esterase, Urine 2+ (Neg); Protein, Urine Neg (Neg); Source, Urine Clean Catch; Specific Gravity, Urine 1.010 (1.003-1.022); Urobilinogen, Urine NORM (Normal)
[2025-03-31 20:29] LABS: Red Blood Cells, Urine 0-2 /hpf (0-2)
[2025-03-31] MEDS ORDERED: CefTRIAXone Sodium 1,000 MG in NS 100 ML IV ONE (21:55)
[2025-03-31] MEDS ORDERED: Pantoprazole Sodium 40 MG Injection IV ONE (21:55)
[2025-03-31] MEDS ORDERED: HydrALAZINE HCl 20 MG / ML 1ML Vial IV PRN (23:40)
[2025-03-31] MEDS ORDERED: NS 1,000 ML IV SCH (23:56)
[2025-04-01 00:52] VITALS: BP 141/81
[2025-04-01] MEDS ORDERED: VALA500 PO (01:06)
[2025-04-01] MEDS ORDERED: HYDROCODONE-AC1 EA19 PO (01:11)
[2025-04-01] MEDS ORDERED: HYDCHL25 PO (01:12)
[2025-04-01] MEDS ORDERED: OLMESARTAN MEDO40 MG PO (01:12)
[2025-04-01] MEDS ORDERED: ELIQUIS5 M3 PO (01:13)
[2025-04-01 05:40] VITALS: BP 151/85
[2025-04-01 05:59] LABS: BASOPHILS ABSOLUTE AUTO 0.04 K/mm3 (0.00-0.23); BASOPHILS PERCENT AUTO 0 % (0-2); EOSINOPHILS ABSOLUTE AUTO 0.13 K/mm3 (0.00-0.68); EOSINOPHILS PERCENT AUTO 1 % (0-6); Hematocrit 32.2 % (33.0-51.0); Hemoglobin 10.7 g/dL (11.5-16.0); IMMATURE GRAN ABSOLUTE AUTO 0.03 K/mm3 (0.00-0.10); IMMATURE GRAN PERCENT AUTO 0 % (0-1); LYMPHOCYTES ABSOLUTE AUTO 2.26 K/mm3 (0.84-5.20); LYMPHOCYTES PERCENT AUTO 21 % (21-46); MONOCYTES ABSOLUTE AUTO 1.29 K/mm3 (0.16-1.47); MONOCYTES PERCENT AUTO 12 % (4-13); Mean Corpuscular HGB Conc 33.2 g/dL (31.5-36.5); Mean Corpuscular Volume 96 fL (80-100); NEUTROPHILS ABSOLUTE AUTO 6.80 K/mm3 (1.96-9.15); NEUTROPHILS PERCENT AUTO 65 % (41-73); NRBC ABSOLUTE 0.00 K/mm3 (0.00-0.02); NRBC Auto 0.0 /100 WBC (0.0-0.2); Platelet Count 274 K/mm3 (150-400); RDW Coefficient Variation 12.7 % (11.7-14.2); RDW Standard Deviation 43.8 fL (35.1-46.3)
--- NOTE | 2025-04-01 06:15 | NUR ---
SHIFT SUMMARY PT ADMITTED TO ROOM 349 FROM ED FOR ENEIDA. PT WITH INCREASED WEAKNESS, FALLS AND BLURRED VISION FOR APPROX 10 DAYS PRIOR TO ADMISSION, NOTING CONFUSION FOR 1 DAY. PT A&O X4, USING CALL LIGHT APPROPRIATELY. OOB TO BATHROOM WITH SBA AND CANE. IVF INFUSING PER ORDER. PT STATES SHE HAS HAD SOME BLACK STOOLS AT HOME- NO BM TONINGHT, BUT SPECIPAN IN TOILET TO ASSESS STOOL. PT SLEPT INTERMITTENTLY DURING THE NIGHT.
[2025-04-01 06:47] LABS: Alanine Aminotransfer (ALT/SGP 17.0 U/L (12-78); Albumin, Blood 3.3 g/dL (3.4-5.0); Albumin/Globulin Ratio 1.0 (0.8-1.8); Anion Gap 9.0 mmol/L (3-11); Aspartate Aminotrans (AST/SGOT 21.0 U/L (12-37); Bilirubin, Total 0.2 mg/dL (0.1-1.0); Blood Urea Nitrogen 27.0 mg/dL (8-24); CO2, Blood 28.0 mmol/L (21-32); Calcium, Blood 8.3 mg/dL (8.5-10.1); Chloride, Blood 99.0 mmol/L (98-108); Creatinine, Blood 1.74 mg/dL (0.40-1.00); Globulin, Blood 3.3 g/dL (2.2-4.0); Glucose, Blood 107.0 mg/dL (70-99); Potassium, Blood 3.3 mmol/L (3.5-5.5); Sodium, Blood 133.0 mmol/L (136-145); Total Protein, Blood 6.6 g/dL (6.4-8.2)
[2025-04-01 07:50] VITALS: BP 122/66
[2025-04-01] MEDS ORDERED: Enoxaparin 30 MG/0.3 ML SYR SC SCH (09:00)
[2025-04-01] MEDS ORDERED: NS 1,000 ML IV SCH (10:20)
[2025-04-01 11:48] VITALS: BP 131/66
[2025-04-01 15:42] VITALS: BP 135/74
--- NOTE | 2025-04-01 17:21 | NUR ---
SHIFT SUMMARY PT A&OX4, VSS, AMB W/ SBA, TOLERATING PO, VOIDING, AND DENIED PAIN. PT C/O NAUSEA X1 THAT WAS MEDICATED PER EMAR. NS INFUSED PER ORDER. PT WORKED W/ PHYSICAL THERAPY THIS SHIFT, SEE THERAPY NOTE. NO OTHER ACUTE CHANGES. CALL LIGHT WITHIN REACH AND PT ABLE TO MAKE NEEDS KNOWN.
[2025-04-01] MEDS ORDERED: Lactobacil 2-S.Thermo-Bifido 1 1 Cap PO SCH (21:00)
[2025-04-01] MEDS ORDERED: NS 250 ML IV PRN (21:05)
[2025-04-01] MEDS ORDERED: TROLAMINE SALICYLATE 10% CREAM 141 GM TUBE TOP PRN (21:25)
[2025-04-01 21:42] VITALS: BP 134/63
[2025-04-01] MEDS ORDERED: CefTRIAXone Sodium 1,000 MG in NS 100 ML IV SCH (22:00)
[2025-04-02 00:54] VITALS: BP 124/92
[2025-04-02 04:10] VITALS: BP 147/80
--- NOTE | 2025-04-02 05:00 | NUR ---
SHIFT SUMMARY PT UP IN ROOM INDEPENDENTLY WITH CANE, DENIES DIZZINESS, AND STATES BLURRED VISION IS IMPROVING. VOIDING WITHOUT DIFFICULTY. SLEPT INTERMITTENTLY DURING THE NIGHT. IV ANTIBIOTICS INFUSED PER ORDER.
[2025-04-02 05:16] LABS: BASOPHILS ABSOLUTE AUTO 0.06 K/mm3 (0.00-0.23); BASOPHILS PERCENT AUTO 1 % (0-2); EOSINOPHILS ABSOLUTE AUTO 0.20 K/mm3 (0.00-0.68); EOSINOPHILS PERCENT AUTO 2 % (0-6); Hematocrit 34.7 % (33.0-51.0); Hemoglobin 11.2 g/dL (11.5-16.0); IMMATURE GRAN ABSOLUTE AUTO 0.03 K/mm3 (0.00-0.10); IMMATURE GRAN PERCENT AUTO 0 % (0-1); LYMPHOCYTES ABSOLUTE AUTO 2.65 K/mm3 (0.84-5.20); LYMPHOCYTES PERCENT AUTO 28 % (21-46); MONOCYTES ABSOLUTE AUTO 0.94 K/mm3 (0.16-1.47); MONOCYTES PERCENT AUTO 10 % (4-13); Mean Corpuscular HGB Conc 32.3 g/dL (31.5-36.5); Mean Corpuscular Volume 99 fL (80-100); NEUTROPHILS ABSOLUTE AUTO 5.69 K/mm3 (1.96-9.15); NEUTROPHILS PERCENT AUTO 60 % (41-73); NRBC ABSOLUTE 0.00 K/mm3 (0.00-0.02); NRBC Auto 0.0 /100 WBC (0.0-0.2); Platelet Count 294 K/mm3 (150-400); RDW Coefficient Variation 12.7 % (11.7-14.2); RDW Standard Deviation 45.6 fL (35.1-46.3)
[2025-04-02] MEDS ORDERED: HYDROcodone 5-APAP 325 TAB PO PRN (05:35)
[2025-04-02 05:44] LABS: Anion Gap 10.0 mmol/L (3-11); Blood Urea Nitrogen 18.0 mg/dL (8-24); CO2, Blood 26.0 mmol/L (21-32); Calcium, Blood 8.2 mg/dL (8.5-10.1); Chloride, Blood 103.0 mmol/L (98-108); Creatinine, Blood 1.54 mg/dL (0.40-1.00); Glucose, Blood 98.0 mg/dL (70-99); Potassium, Blood 3.6 mmol/L (3.5-5.5); Sodium, Blood 135.0 mmol/L (136-145)
[2025-04-02 07:28] VITALS: BP 140/71
[2025-04-02 11:47] VITALS: BP 149/85
--- NOTE | 2025-04-02 14:01 | NUR ---
DISCHARGE NOTE: A&OX4 PRIOR TO D/C. PAPERWORK AND EDUCATION DISCUSSED WITH PATIENT. VERBAL ACKNOWLEDGEMENT OF FOLLOW UP APPOINTMENT AND INFORMATION. PT ESCORTED OUT VIA W/C BY CNA. ELLIS TO CATERING ASSOCIATE PATIENT.
== END 2025-04-02 14:00 | disposition home or self-care (01) ==
LOC: ER 16:51 → MEDS 16:52 → ENPENDDIS 04-02 11:42 → MEDS 04-02 14:00
PROVIDERS: Emergency Medicine; Family Medicine; Student in an Organized Health Care Education/Training Program; ADMIT Student in an Organized Health Care Education/Training Program
DX: N17.9 Acute kidney failure, unspecified (principal); N18.32 Chronic kidney disease, stage 3b; I48.91 Unspecified atrial fibrillation; I25.10 Atherosclerotic heart disease of native coronary artery without angina pectoris; I13.0 Hypertensive heart and chronic kidney disease with heart failure and stage 1 through stage 4 chronic kidney disease, or unspecified chronic kidney disease; I50.31 Acute diastolic (congestive) heart failure; D63.1 Anemia in chronic kidney disease; D50.9 Iron deficiency anemia, unspecified; E87.6 Hypokalemia; E87.1 Hypo-osmolality and hyponatremia; N39.0 Urinary tract infection, site not specified; F41.1 Generalized anxiety disorder; R73.03 Prediabetes; Z79.01 Long term (current) use of anticoagulants; Z79.02 Long term (current) use of antithrombotics/antiplatelets; Z79.82 Long term (current) use of aspirin; Z79.84 Long term (current) use of oral hypoglycemic drugs; Z79.899 Other long term (current) drug therapy; I25.2 Old myocardial infarction; Z88.2 Allergy status to sulfonamides; Z88.5 Allergy status to narcotic agent; Z88.8 Allergy status to other drugs, medicaments and biological substances
CPT/HCPCS: 36415; 70450; 71046; 74174; 80048; 80053; 81001; 83690; 84484; 85025; 87086; 93005; 93010; 94762; 96365; 96366; 96372; 96375; 97110; 97161; 99285-25; A9270; G0378; J0696; J1650; J2470; J7030; J7050; J7120; Q9967

== ENCOUNTER → 2025-04-18 | Outpatient (CLI) | payer OTHER ==
[~2025-04-18] MED LIST changes: +ELIQUIS5 M3 PO; +HYDCHL25 PO; +HYDROCODONE-AC1 EA19 PO; +OLMESARTAN MEDO40 MG PO; +VALA500 PO
[2025-04-21 09:50] LABS: CREATININE,URINE - PER 24H 1056 mg/d (500-1400); CREATININE,URINE - PER VOLUME 44 mg/dL; HOURS COLLECTED 24 hr; METANEPHRINE,UR - RATIO TO CRT 75 ug/g CRT (0-300); METANEPHRINE,URINE - PER 24H 79 ug/d (36-229); METANEPHRINE,URN - PER VOLUME 33 ug/L; NORMETANEPHRINE,U - PER VOLUME 256 ug/L; NORMETANEPHRINE,URN - PER 24H 614 ug/d (95-650); NORMETANEPHRINE,URN/CRT RATIO 582 ug/g CRT (0-400)
== END ==
LOC: LAB SHORT 11:05 → LAB 11:05 → LAB FUT 04-13 13:50
PROVIDERS: Student in an Organized Health Care Education/Training Program
DX: I10 Essential (primary) hypertension (principal)
CPT/HCPCS: 83835